=== PATIENT | male | born 1950 | race Caucasian/White ===

== ENCOUNTER 2020-09-20 09:34 | Emergency (ER) | payer OTHER ==
[2020-09-20 09:46] VITALS: BP 146/76; PULSE 58; TEMP 97.8; BMI 25.1
== END 2020-09-20 11:06 | disposition home or self-care (01) ==
LOC: JERFT 09:34
DX: L20.9 Atopic dermatitis, unspecified (principal)
CPT/HCPCS: 99281-25

== ENCOUNTER 2020-09-27 09:54 | Emergency (ER) | payer OTHER ==
[2020-09-27 10:02] VITALS: BP 147/81; PULSE 52; TEMP 98; BMI 25.1
== END 2020-09-27 11:17 | disposition home or self-care (01) ==
LOC: JERFT 09:54
DX: L25.9 Unspecified contact dermatitis, unspecified cause (principal)
CPT/HCPCS: 99282-25

== ENCOUNTER 2020-10-11 11:50 | Emergency (ER) | payer OTHER ==
[2020-10-11 12:10] VITALS: BP 121/71; PULSE 54; TEMP 97.6; BMI 23.8
== END 2020-10-11 14:05 | disposition home or self-care (01) ==
LOC: JERFT 11:50
DX: L30.9 Dermatitis, unspecified (principal)
CPT/HCPCS: 99281-25